=== PATIENT | male | born 1980 | race Caucasian/White ===

== ENCOUNTER 2016-08-14 14:58 | Emergency (ER) | payer MEDICAID ==
[2016-08-14] MEDS ORDERED: SODIUM CHLORIDE 0.9% 1,000 ML ONE (15:43)
[2016-08-14] MEDS ORDERED: DICYCLOMINE 20MG/2ML VIAL IM ONE (15:43)
[2016-08-14] MEDS ORDERED: ONDANSETRON 4 MG VIAL ONE (15:43)
== END 2016-08-14 17:56 | disposition home or self-care (01) ==
LOC: ER 14:58
CPT/HCPCS: 36415; 74022; 80053; 81003; 83690; 85025; 86701; 96361; 96372; 96374